=== PATIENT | female | born 1960 | race Caucasian/White ===

== ENCOUNTER 2023-05-06 17:00 | Outpatient (RCR) | payer BC, SELFPAY | END 2023-06-04 09:37 | disposition home or self-care (01) | LOC: HO.PT 17:00 | PROVIDERS: PCP Internal Medicine; Visit Provider Orthopaedic Surgery | DX: S82.042D Displaced comminuted fracture of left patella, subsequent encounter for closed fracture with routine healing (principal); Z98.890 Other specified postprocedural states; Z87.81 Personal history of (healed) traumatic fracture | CPT/HCPCS: 97110; 97112; 97116; 97140; 97161; 97530 ==

== ENCOUNTER 2023-09-18 13:00 | Outpatient (RCR) | payer BC, SELFPAY | END 2024-04-20 14:57 | disposition home or self-care (01) | LOC: HO.OT 13:00 | PROVIDERS: PCP Physician Assistant; Visit Provider Internal Medicine | DX: M15.9 Polyosteoarthritis, unspecified (principal) | CPT/HCPCS: 29125; 97110; 97140; 97165; 97760 ==

== ENCOUNTER 2023-11-20 15:00 | Outpatient (RCR) | payer BC, SELFPAY | END 2023-11-21 07:51 | disposition home or self-care (01) | LOC: HO.PTCHIC 15:00 | PROVIDERS: PCP Internal Medicine; Visit Provider Physician Assistant | DX: M54.50 Low back pain, unspecified (principal) | CPT/HCPCS: 97110; 97140; 97161 ==